=== PATIENT | female | born 2000 | race Caucasian/White ===

== ENCOUNTER 2018-08-27 21:10 | Emergency (ER) | payer BC, OTHER ==
[~2018-08-27] VITALS: Ht 165.1 cm; Wt 115.3 kg
[2018-08-27 21:32] VITALS: BP 164/95
[2018-08-27] MEDS ORDERED: dexamethasone sod phosphate 10mg/ml inj PO STA (23:10)
[2018-08-27] MEDS ORDERED: AMOX500C2 PO (23:21)
== END 2018-08-27 23:55 | disposition home or self-care (01) ==
LOC: ER 21:12
DX: H66.93 Otitis media, unspecified, bilateral (principal); I10 Essential (primary) hypertension; Z90.89 Acquired absence of other organs; Z79.899 Other long term (current) drug therapy
CPT/HCPCS: 99283; J1100